=== PATIENT | female | born 1945 | race Caucasian/White ===

== ENCOUNTER 2018-12-20 07:46 | Observation (INO) | payer MEDICARE, OTHER ==
[~2018-12-20 07:46] MED LIST: Povidone-Iodine 10% Soln 118.25 ML Bottle ONE; Tranexamic Acid 950 MG in Sodium Chloride 0.9% 50 ML IV PRN
[2018-12-20] MEDS ORDERED: fentaNYL 100 MCG/2 ML SDV ONE (08:04)
[2018-12-20] MEDS ORDERED: Propofol 200 MG/20 ML SDV ONE ×3 (08:04→13:26)
[2018-12-20] MEDS ORDERED: Midazolam 1 MG/ML 2 ML SDV ONE (08:04)
[2018-12-20] MEDS ORDERED: Scopolamine 1.5 MG Transdermal Patch TOP SCH (08:15)
[2018-12-20] MEDS: Nozin Nasal Sanitizer NASBOTH SCH ×3 (08:31→22:44)
[2018-12-20] MEDS: Lactated Ringers 1,000 ML IV SCH ×2 (08:32→18:16)
[2018-12-20] MEDS ORDERED: Tranexamic Acid 950 MG in Sodium Chloride 0.9% 50 ML IV ONE ×2 (09:30→13:00)
[2018-12-20] MEDS ORDERED: ceFAZolin 2 GM in Sodium Chloride 0.9% 50 ML IV ONE (09:30)
[2018-12-20] MEDS ORDERED: Lactated Ringers 1,000 ML ONE (13:24)
[2018-12-20] MEDS ORDERED: Acetaminophen 325 MG Tab PO PRN (14:31)
[2018-12-20] MEDS ORDERED: Acetaminophen/HYDROcodone 325-5 MG Tab PO PRN (14:31)
[2018-12-20] MEDS ORDERED: Magnesium Hydroxide 400 MG/5 ML Susp 30 ML Cup PO PRN (14:48)
[2018-12-20] MEDS: HYDROmorphone 1 MG/ML Syringe IVPUSH PRN ×2 (16:06→18:14)
[2018-12-20] MEDS ORDERED: HYDROmorphone 0.5 MG/0.5 ML Syringe IVPUSH ONE (16:58)
--- NOTE | 2018-12-20 19:03 | CRLUS ---
INDICATION: Left groin pain. Status post left total knee prosthesis placement. COMPARISON: 11/08/2009 FINDINGS: Ultrasound of the arterial supply of the left lower extremity is performed with color and pulse Doppler technique. Left leg: There is monophasic flow throughout the entire left lower extremity, unchanged from the previous study. Common femoral artery: 243 centimeters/seconds Profunda femoris: 156 centimeters/seconds Proximal superficial femoral artery: 139 centimeters/seconds Mid superficial femoral artery: 117 centimeters/second Distal superficial femoral artery: 51 centimeters/second. Popliteal artery: Could not be examined because of bandage and brace from recent knee surgery. Very low flow velocities distal to the popliteal artery, with lower velocities than seen on the previous study Anterior tibial artery: 15 centimeters/second Peroneal artery: 13 centimeters/second Posterior tibial artery: 25 centimeters/seconds Dorsalis pedis: 13 centimeters/second. The findings indicate occlusion above or below the popliteal artery. The velocities are lower in the calf than seen in the previous study indicating worsening stenosis. There was previously no flow in the left mid superficial femoral artery, and flow satisfactory is now seen in this region. The flow in the common femoral artery is significantly elevated, new compared to the previous study, indicating 50-75 percent stenosis. 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 Mormonism of flow in the left mid superficial femoral artery, previously seen to be occluded. Unable to examine the popliteal artery because of bandage and brace from recent surgery. Prominently decreased peak systolic velocities throughout the left calf, more prominent than seen on the previous study, consistent with more prominent stenosis or occlusion in the area of the popliteal artery. Dictated by Surinder Cobb MD @ Dec 20 2018 6:52PM Signed by Dr. Surinder Cobb @ Dec 20 2018 7:01PM
[2018-12-20] MEDS: Acetaminophen/oxyCODONE 325-5 MG Tab PO PRN (19:25)
[2018-12-20] MEDS ORDERED: Enoxaparin 40 MG/0.4 ML Syringe SUBCUT ONE (20:00)
[2018-12-20] MEDS: Ketorolac 30 MG/ML SDV IVPUSH PRN (20:01)
[2018-12-20] MEDS: ceFAZolin 1 GM in Premix Bag 1 BAG IV SCH (20:04)
[2018-12-20] MEDS: Ondansetron 4 MG/2 ML SDV IVPUSH PRN (20:15)
[2018-12-21] MEDS: Acetaminophen/oxyCODONE 325-5 MG Tab PO PRN ×5 (04:07→20:35)
[2018-12-21] MEDS: ceFAZolin 1 GM in Premix Bag 1 BAG IV SCH ×2 (04:09→12:30)
[2018-12-21] MEDS: Ketorolac 30 MG/ML SDV IVPUSH PRN ×2 (07:37→14:29)
[2018-12-21] MEDS: Lactated Ringers 1,000 ML IV SCH (07:52)
[2018-12-21] MEDS ORDERED: Enoxaparin 40 MG/0.4 ML Syringe SUBCUT ONE (09:00)
[2018-12-21] MEDS ORDERED: Lisinopril 20 MG Tab PO SCH (09:00)
[2018-12-21] MEDS: Nozin Nasal Sanitizer NASBOTH SCH ×2 (10:07→20:33)
[2018-12-21] MEDS: amLODIPine 5 MG **PTOM PO SCH (10:08)
[2018-12-21] MEDS: LISINOPRIL 40MG **PTOM PO SCH (10:08)
[2018-12-21] MEDS: Docusate Sodium 100 MG Cap PO PRN ×2 (12:30→20:35)
[2018-12-21] MEDS: Warfarin 5 MG Tab PO SCH (12:34)
[2018-12-22] MEDS: Acetaminophen/oxyCODONE 325-5 MG Tab PO PRN ×5 (02:33→21:36)
[2018-12-22] MEDS: Ondansetron 4 MG/2 ML SDV IVPUSH PRN (09:05)
[2018-12-22] MEDS ORDERED: Enoxaparin 40 MG/0.4 ML Syringe SUBCUT ONE (10:00)
[2018-12-22] MEDS: Nozin Nasal Sanitizer NASBOTH SCH ×2 (10:04→21:37)
[2018-12-22] MEDS: amLODIPine 5 MG **PTOM PO SCH (10:05)
[2018-12-22] MEDS: LISINOPRIL 40MG **PTOM PO SCH (10:06)
[2018-12-22] MEDS ORDERED: Warfarin 2.5 MG Tab PO ONE (11:00)
--- NOTE | 2018-12-22 11:45 | PCM.SURGPN ---
- General Info Date of Service: 12/21/18 POD#: 1 Functional Status: Reports: Tolerating Diet, Other (pain not well controlled, primarily posterior knee and calf) - Review of Systems General: Reports: No Symptoms HEENT: Reports: No Symptoms Pulmonary: Reports: No Symptoms Cardiovascular: Reports: No Symptoms Gastrointestinal: Reports: No Symptoms Genitourinary: Reports: No Symptoms Musculoskeletal: Reports: Leg Pain Skin: Reports: No Symptoms Neurological: Reports: No Symptoms Psychiatric: Reports: No Symptoms - Patient Data Vitals - Most Recent: Last Vital Signs Temp 36.3 C 12/22/18 10:19 Pulse 73 12/22/18 10:19 Resp 16 12/22/18 10:19 BP 120/49 L 12/22/18 10:19 Pulse Ox 92 L 12/22/18 10:19 Weight - Most Recent: 97.522 kg I&O - Last 24 Hours: Intake & Output 12/21/18 12/22/18 12/22/18 22:59 06:59 14:59 Intake Total 1320 300 360 Output Total 700 750 200 Balance 620 -450 160 Lab Results Last 24 Hrs: Laboratory Results - last 24 hr 12/22/18 Range/Units 04:25 PT 10.8 (9.5-12.0) sec INR 1.00 (0.80-1.20) Med Orders - Current: Current Medications Acetaminophen (Tylenol) 650 mg PO Q4H PRN PRN Reason: Pain/Fever Hydrocodone Bitart/Acetaminophen ([place] 325-5 Mg) 1 tab PO Q3H PRN PRN Reason: Pain (mild 1-3) Amlodipine Besylate (Norvasc) 5 mg PO DAILY [facility] Last Admin: 12/22/18 10:05 Dose: 5 mg Bandage/Support Products ( Nasal Rn Physician Office) 1 applic NASBOTH BID [facility] Stop: 12/27/18 21:01 Last Admin: 12/22/18 10:04 Dose: 1 applic Docusate Sodium (Colace) 100 mg PO BID PRN PRN Reason: Constipation Last Admin: 12/21/18 20:35 Dose: 100 mg Hydromorphone HCl (Dilaudid) 1 mg IVPUSH Q1H PRN PRN Reason: Pain (severe 7-10) Last Admin: 12/20/18 18:14 Dose: 1 mg Ketorolac Tromethamine (Toradol) 30 mg IVPUSH Q6H PRN PRN Reason: Pain (moderate 4-6) Stop: 12/25/18 18:43 Last Admin: 12/21/18 14:29 Dose: 30 mg Magnesium Hydroxide (Milk Of Magnesia) 30 ml PO Q8H PRN PRN Reason: Constipation Ondansetron HCl (Zofran) 4 mg IVPUSH Q6H PRN PRN Reason: Nausea/Vomiting Last Admin: 12/22/18 09:05 Dose: 4 mg Oxycodone/Acetaminophen (Percocet 325-5 Mg) 1 - 2 tab PO Q4H PRN PRN Reason: Pain (severe 7-10) Last Admin: 12/22/18 11:12 Dose: 2 tab Lisinopril 40mg (Ptom) 0 each PO DAILY [facility] Last Admin: 12/22/18 10:06 Dose: 1 each Scopolamine (Transderm-Scop) 1.5 mg TOP Q72H [facility] Stop: 12/23/18 06:00 Last Admin: 12/20/18 08:29 Dose: 1.5 mg Warfarin Sodium (Coumadin) 5 mg PO DAILY@1300 [facility] Last Admin: 12/21/18 12:34 Dose: 5 mg Discontinued Medications Bandage/Support Products ( Nasal Rn Physician Office) 1 applic NASBOTH BID [facility] Last Admin: 12/20/18 22:44 Dose: Not Given Enoxaparin Sodium (Lovenox) 40 mg SUBCUT ONETIME ONE Stop: 12/20/18 20:01 Last Admin: 12/20/18 20:10 Dose: 40 mg Enoxaparin Sodium (Lovenox) 40 mg SUBCUT ONETIME ONE Stop: 12/21/18 09:01 Last Admin: 12/21/18 10:07 Dose: 40 mg Enoxaparin Sodium (Lovenox) 40 mg SUBCUT ONETIME ONE Stop: 12/22/18 10:01 Last Admin: 12/22/18 11:10 Dose: 40 mg Fentanyl (Sublimaze) Confirm Administered Dose 100 mcg .ROUTE .STK-MED ONE Stop: 12/20/18 08:05 Hydromorphone HCl (Dilaudid) 0.5 mg IVPUSH ONETIME ONE Stop: 12/20/18 16:59 Last Admin: 12/20/18 17:05 Dose: 0.5 mg Cefazolin Sodium 2 gm/ Sodium (Chloride) 50 mls @ 100 mls/hr IV ONETIME ONE Stop: 12/20/18 09:59 Last Admin: 12/20/18 12:45 Dose: 100 mls/hr Lactated Ringer's (Ringers, Lactated) 1,000 mls @ 75 mls/hr IV ASDIRECTED [facility] Last Admin: 12/21/18 07:52 Dose: 75 mls/hr Tranexamic Acid 950 mg/ Sodium (Chloride) 59.5 mls @ 238 mls/hr IV ONETIME PRN PRN Reason: REPEAT DOSE SURGEON REQUEST Stop: 12/20/18 15:00 Tranexamic Acid 950 mg/ Sodium (Chloride) 59.5 mls @ 238 mls/hr IV ONETIME ONE Stop: 12/20/18 13:14 Last Admin: 12/20/18 13:20 Dose: 238 mls/hr Lactated Ringer's (Ringers, Lactated) Confirm Administered Dose 1,000 mls @ as directed .ROUTE .STK-MED ONE Stop: 12/20/18 13:25 Cefazolin Sodium/Dextrose 1 gm (/ Premix) 50 mls @ 100 mls/hr IV Q8H [facility] Stop: 12/21/18 12:29 Last Admin: 12/21/18 12:30 Dose: 100 mls/hr Lisinopril (Prinivil) 40 mg PO DAILY [facility] Midazolam HCl (Versed 1 Mg/Ml) Confirm Administered Dose 2 mg .ROUTE .STK-MED ONE Stop: 12/20/18 08:05 Povidone Iodine (Betadine 10% Soln) Confirm Administered Dose 1 ml .ROUTE .STK- MED ONE Stop: 12/20/18 06:53 Last Admin: 12/20/18 13:40 Dose: 1 ml Propofol (Diprivan 20 Ml) Confirm Administered Dose 200 mg .ROUTE .STK-MED ONE Stop: 12/20/18 08:05 Propofol (Diprivan 20 Ml) Confirm Administered Dose 200 mg .ROUTE .STK-MED ONE Stop: 12/20/18 13:26 Propofol (Diprivan 20 Ml) Confirm Administered Dose 200 mg .ROUTE .STK-MED ONE Stop: 12/20/18 13:27 Warfarin Sodium (Coumadin) 2.5 mg PO ONETIME ONE Stop: 12/22/18 11:01 - Exam Wound/Incisions: Other (bloody drainage later in the day) General: Alert, Oriented HEENT: Pupils Equal Neck: Supple Lungs: Clear to Auscultation, Normal Respiratory Effort GI/Abdominal Exam: Normal Bowel Sounds, Soft, Non-Tender, No Organomegaly, No Distention, No Abnormal Bruit, No Mass, Pelvis Stable Extremities: Joint Swelling, Other (calf, foot and toes warm with good cap refill, Franklin's negative, moving foot up and down) Skin: Warm, Dry, Intact Neurological: No New Focal Deficit Psy/Mental Status: Alert, Normal Affect, Normal Mood - Problem List & Annotations (1) Left knee pain SNOMED Code(s): 75619146 Code(s): M25.562 - PAIN IN LEFT KNEE Status: Acute Current Visit: Yes (2) Status post total left knee replacement SNOMED Code(s): 3007628578922, 7515397187797 Code(s): Z96.652 - PRESENCE OF LEFT ARTIFICIAL KNEE JOINT Status: Acute Current Visit: Yes (3) Hx of deep venous thrombosis SNOMED Code(s): 641375732 Code(s): Z86.718 - PERSONAL HISTORY OF OTHER VENOUS THROMBOSIS AND EMBOLISM Status: Chronic Current Visit: No (4) PVD (peripheral vascular disease) SNOMED Code(s): 740709980 Code(s): I73.9 - PERIPHERAL VASCULAR DISEASE, UNSPECIFIED Status: Chronic Current Visit: No - Problem List Review Problem List Initiated/Reviewed/Updated: Yes - My Orders Last 24 Hours: Active Orders 24 hr Category Date Time Status INR,PT,PROTHROMBIN TIME [COAG] AM Lab 12/23/18 05:11 Ordered Warfarin [Coumadin] Med 12/21/18 13:00 Active 5 mg PO DAILY@1300 Convert IV to Saline Lock [OM.PC] Routine Oth 12/21/18 17:21 Ordered Medication Orders Acetaminophen (Tylenol) 650 mg PO Q4H PRN PRN Reason: Pain/Fever Hydrocodone Bitart/Acetaminophen ([place] 325-5 Mg) 1 tab PO Q3H PRN PRN Reason: Pain (mild 1-3) Amlodipine Besylate (Norvasc) 5 mg PO DAILY [facility] Last Admin: 12/22/18 10:05 Dose: 5 mg Admin: 12/21/18 10:08 Dose: 5 mg Bandage/Support Products ( Nasal Rn Physician Office) 1 applic NASBOTH BID [facility] Stop: 12/27/18 21:01 Last Admin: 12/22/18 10:04 Dose: 1 applic Admin: 12/21/18 20:33 Dose: 1 applic Admin: 12/21/18 10:07 Dose: 1 applic Admin: 12/20/18 21:47 Dose: 1 applic Docusate Sodium (Colace) 100 mg PO BID PRN PRN Reason: Constipation Last Admin: 12/21/18 20:35 Dose: 100 mg Admin: 12/21/18 12:30 Dose: 100 mg Hydromorphone HCl (Dilaudid) 1 mg IVPUSH Q1H PRN PRN Reason: Pain (severe 7-10) Last Admin: 12/20/18 18:14 Dose: 1 mg Admin: 12/20/18 16:06 Dose: 1 mg Ketorolac Tromethamine (Toradol) 30 mg IVPUSH Q6H PRN PRN Reason: Pain (moderate 4-6) Stop: 12/25/18 18:43 Last Admin: 12/21/18 14:29 Dose: 30 mg Admin: 12/21/18 07:37 Dose: 30 mg Admin: 12/20/18 20:01 Dose: 30 mg Magnesium Hydroxide (Milk Of Magnesia) 30 ml PO Q8H PRN PRN Reason: Constipation Ondansetron HCl (Zofran) 4 mg IVPUSH Q6H PRN PRN Reason: Nausea/Vomiting Last Admin: 12/22/18 09:05 Dose: 4 mg Admin: 12/20/18 20:15 Dose: 4 mg Oxycodone/Acetaminophen (Percocet 325-5 Mg) 1 - 2 tab PO Q4H PRN PRN Reason: Pain (severe 7-10) Last Admin: 12/22/18 11:12 Dose: 2 tab Admin: 12/22/18 07:02 Dose: 2 tab Admin: 12/22/18 02:33 Dose: 2 tab Admin: 12/21/18 20:35 Dose: 2 tab Admin: 12/21/18 16:22 Dose: 2 tab Admin: 12/21/18 12:30 Dose: 2 tab Admin: 12/21/18 07:53 Dose: 2 tab Admin: 12/21/18 04:07 Dose: 2 tab Admin: 12/20/18 19:25 Dose: 2 tab Lisinopril 40mg (Ptom) 0 each PO DAILY [facility] Last Admin: 12/22/18 10:06 Dose: 1 each Admin: 12/21/18 10:08 Dose: 1 each Scopolamine (Transderm-Scop) 1.5 mg TOP Q72H [facility] Stop: 12/23/18 06:00 Last Admin: 12/20/18 08:29 Dose: 1.5 mg Warfarin Sodium (Coumadin) 5 mg PO DAILY@1300 [facility] Last Admin: 12/21/18 12:34 Dose: 5 mg - Assessment Assessment (Free Text/Narrative):: Pain post-op in lower abdomen and groin, arterial Doppler done. Flow thru femoral artery, decreased flow in lower leg but present. Calf and foot are warm this AM. Has not been up with PT other than into chair. - Plan Plan (Free Text/Narrative):: Start Coumadin and continue Lovenox until PT/INR are therapeutic. Advance with PT. Change dressing, keep Guillermo thru tonight.
[2018-12-22] MEDS: Warfarin 5 MG Tab PO SCH (13:05)
--- NOTE | 2018-12-22 13:11 | OR ---
DATE OF PROCEDURE: 12/20/2018 PREOPERATIVE DIAGNOSIS: Osteoarthritis, left knee. POSTOPERATIVE DIAGNOSIS: End-stage osteoarthritis, left knee. PROCEDURE: Left total knee arthroplasty using [employer] components with a size 7 femur, size E tibia, 35 mm patella, and a 10 mm polyethylene insert. ANESTHESIA: Spinal with sedation. INDICATIONS: Daisy is a 73-year-old female with a history of progressive pain in both knees over the past year. The left knee is more painful than the right and limiting activities. X-rays show end-stage osteoarthritis. She is admitted for left total knee arthroplasty. Risks, benefits, potential complications of the procedure were discussed. PROCEDURE: After adequate anesthesia was obtained, the patient was placed supine with a tourniquet about the left upper thigh. The left leg was prepped and draped in a sterile fashion. Leg was exsanguinated and tourniquet inflated to 300 mmHg pressure. Anterior longitudinal incision was made over the knee and carried down through the subcutaneous tissues. A medial parapatellar arthrotomy was performed. A portion of the fat pad was excised. Medial release was performed and the anterior horn of the medial meniscus was excised. Patella was everted and the posterior aspect of the patella was resected with an oscillating saw. The knee was flexed, and the intramedullary canal on the femur was drilled. The intramedullary guide was placed and the distal femur was cut. Attention was then turned to the tibia where the extramedullary tibial jig was placed and secured with 2 proximal pins. Proximal tibia was resected. Medial and lateral menisci were excised. The knee was then flexed, and the distal femur was sized to a 7 component. The number 7 cutting jig was secured to the distal femur and remaining cuts were then made. The 7 trial was placed and an intercondylar notch cut was made for a posterior cruciate sacrificing component. Tibia was then sized to an E component. The tibial tray is placed and secured with a pin. Tibial preparation completed with the drill and punch. The knee was then taken through range of motion with trials with a 10 mm insert. This provided good balance in flexion and extension. The patella was resurfaced with a 35 mm patellar button and no lateral release was required. The trials were then removed. The knee is thoroughly irrigated with pulse lavage. The bone surfaces were dried and components were cemented in place. Excess cement was removed and the knee was held in full extension with a 10 mm trial insert until the cement cured. Trial was removed, the knee was irrigated, and the final 10 mm polyethylene was snapped into position. This provided excellent balance in flexion and extension with flexion easily to 130 degrees and full extension. Knee was irrigated with dilute Betadine solution followed by pulse lavage. The capsule was then closed with #1 Ethibond. The knee was then closed with 2-0 Vicryl and a running 3-0 Monocryl. Steri-Strips were applied. This was followed by a light compressive dressing. The patient tolerated the procedure very well. There were no complications. She was taken from the operating room in a stable condition. Ildefonso Justice MD /[id number]
[2018-12-22] MEDS: Docusate Sodium 100 MG Cap PO PRN (21:40)
[2018-12-23] MEDS: Acetaminophen/oxyCODONE 325-5 MG Tab PO PRN ×6 (01:56→23:32)
[2018-12-23] MEDS ORDERED: Sennosides 8.6 MG Tab PO PRN (07:52)
[2018-12-23] MEDS: Nozin Nasal Sanitizer NASBOTH SCH ×2 (08:25→22:05)
[2018-12-23] MEDS: LISINOPRIL 40MG **PTOM PO SCH (08:26)
[2018-12-23] MEDS: amLODIPine 5 MG **PTOM PO SCH (08:27)
--- NOTE | 2018-12-23 12:38 | PCM.SURGPN ---
- General Info Date of Service: 12/22/18 Date of Surgery/Procedure: 12/20/18 POD#: 2 Functional Status: Reports: Tolerating Diet, Other (Pain better controlled, has not been out of room with PT) - Review of Systems General: Reports: No Symptoms HEENT: Reports: No Symptoms Pulmonary: Reports: No Symptoms Cardiovascular: Reports: No Symptoms Gastrointestinal: Reports: Nausea Genitourinary: Reports: No Symptoms, Other Musculoskeletal: Reports: Leg Pain, Other (pain in knee and calf ) Skin: Reports: No Symptoms Neurological: Reports: No Symptoms Psychiatric: Reports: No Symptoms - Patient Data Vitals - Most Recent: Last Vital Signs Temp 36.6 C 12/23/18 10:20 Pulse 80 12/23/18 10:20 Resp 18 12/23/18 10:20 BP 105/54 L 12/23/18 10:20 Pulse Ox 94 L 12/23/18 10:20 Weight - Most Recent: 97.522 kg I&O - Last 24 Hours: Intake & Output 12/22/18 12/23/18 12/23/18 22:59 06:59 14:59 Intake Total 800 480 Output Total 100 1050 Balance 700 -1050 480 Lab Results Last 24 Hrs: Laboratory Results - last 24 hr 12/23/18 Range/Units 05:14 PT 11.2 (9.5-12.0) sec INR 1.04 (0.80-1.20) Med Orders - Current: Current Medications Acetaminophen (Tylenol) 650 mg PO Q4H PRN PRN Reason: Pain/Fever Hydrocodone Bitart/Acetaminophen (Brave 325-5 Mg) 1 tab PO Q3H PRN PRN Reason: Pain (mild 1-3) Amlodipine Besylate (Norvasc) 5 mg PO DAILY [facility] Last Admin: 12/23/18 08:27 Dose: 5 mg Bandage/Support Products ( Nasal Gun Perforator Loader) 1 applic NASBOTH BID [facility] Stop: 12/27/18 21:01 Last Admin: 12/23/18 08:25 Dose: 1 applic Docusate Sodium (Colace) 100 mg PO BID PRN PRN Reason: Constipation Last Admin: 12/22/18 21:40 Dose: 100 mg Enoxaparin Sodium (Lovenox) 40 mg SUBCUT ONETIME ONE Stop: 12/23/18 12:33 Hydromorphone HCl (Dilaudid) 1 mg IVPUSH Q1H PRN PRN Reason: Pain (severe 7-10) Last Admin: 12/20/18 18:14 Dose: 1 mg Ketorolac Tromethamine (Toradol) 30 mg IVPUSH Q6H PRN PRN Reason: Pain (moderate 4-6) Stop: 12/25/18 18:43 Last Admin: 12/21/18 14:29 Dose: 30 mg Magnesium Hydroxide (Milk Of Magnesia) 30 ml PO Q8H PRN PRN Reason: Constipation Ondansetron HCl (Zofran) 4 mg IVPUSH Q6H PRN PRN Reason: Nausea/Vomiting Last Admin: 12/22/18 09:05 Dose: 4 mg Oxycodone/Acetaminophen (Percocet 325-5 Mg) 1 - 2 tab PO Q4H PRN PRN Reason: Pain (severe 7-10) Last Admin: 12/23/18 10:17 Dose: 2 tab Lisinopril 40mg (Ptom) 0 each PO DAILY [facility] Last Admin: 12/23/18 08:26 Dose: 1 each Senna (Senna) 8.6 mg PO DAILY PRN PRN Reason: Constipation Last Admin: 12/23/18 08:25 Dose: 8.6 mg Warfarin Sodium (Coumadin) 5 mg PO DAILY@1300 [facility] Last Admin: 12/22/18 13:05 Dose: 5 mg Warfarin Sodium (Coumadin) 5 mg PO ONETIME ONE Stop: 12/23/18 12:31 Discontinued Medications Bandage/Support Products ( Nasal Gun Perforator Loader) 1 applic NASBOTH BID [facility] Last Admin: 12/20/18 22:44 Dose: Not Given Enoxaparin Sodium (Lovenox) 40 mg SUBCUT ONETIME ONE Stop: 12/20/18 20:01 Last Admin: 12/20/18 20:10 Dose: 40 mg Enoxaparin Sodium (Lovenox) 40 mg SUBCUT ONETIME ONE Stop: 12/21/18 09:01 Last Admin: 12/21/18 10:07 Dose: 40 mg Enoxaparin Sodium (Lovenox) 40 mg SUBCUT ONETIME ONE Stop: 12/22/18 10:01 Last Admin: 12/22/18 11:10 Dose: 40 mg Fentanyl (Sublimaze) Confirm Administered Dose 100 mcg .ROUTE .STK-MED ONE Stop: 12/20/18 08:05 Hydromorphone HCl (Dilaudid) 0.5 mg IVPUSH ONETIME ONE Stop: 12/20/18 16:59 Last Admin: 12/20/18 17:05 Dose: 0.5 mg Cefazolin Sodium 2 gm/ Sodium (Chloride) 50 mls @ 100 mls/hr IV ONETIME ONE Stop: 12/20/18 09:59 Last Admin: 12/20/18 12:45 Dose: 100 mls/hr Lactated Ringer's (Ringers, Lactated) 1,000 mls @ 75 mls/hr IV ASDIRECTED [facility] Last Admin: 12/21/18 07:52 Dose: 75 mls/hr Tranexamic Acid 950 mg/ Sodium (Chloride) 59.5 mls @ 238 mls/hr IV ONETIME PRN PRN Reason: REPEAT DOSE SURGEON REQUEST Stop: 12/20/18 15:00 Tranexamic Acid 950 mg/ Sodium (Chloride) 59.5 mls @ 238 mls/hr IV ONETIME ONE Stop: 12/20/18 13:14 Last Admin: 12/20/18 13:20 Dose: 238 mls/hr Lactated Ringer's (Ringers, Lactated) Confirm Administered Dose 1,000 mls @ as directed .ROUTE .STK-MED ONE Stop: 12/20/18 13:25 Cefazolin Sodium/Dextrose 1 gm (/ Premix) 50 mls @ 100 mls/hr IV Q8H [facility] Stop: 12/21/18 12:29 Last Admin: 12/21/18 12:30 Dose: 100 mls/hr Lisinopril (Prinivil) 40 mg PO DAILY [facility] Midazolam HCl (Versed 1 Mg/Ml) Confirm Administered Dose 2 mg .ROUTE .STK-MED ONE Stop: 12/20/18 08:05 Povidone Iodine (Betadine 10% Soln) Confirm Administered Dose 1 ml .ROUTE .STK- MED ONE Stop: 12/20/18 06:53 Last Admin: 12/20/18 13:40 Dose: 1 ml Propofol (Diprivan 20 Ml) Confirm Administered Dose 200 mg .ROUTE .STK-MED ONE Stop: 12/20/18 08:05 Propofol (Diprivan 20 Ml) Confirm Administered Dose 200 mg .ROUTE .STK-MED ONE Stop: 12/20/18 13:26 Propofol (Diprivan 20 Ml) Confirm Administered Dose 200 mg .ROUTE .STK-MED ONE Stop: 12/20/18 13:27 Scopolamine (Transderm-Scop) 1.5 mg TOP Q72H [facility] Stop: 12/23/18 06:00 Last Admin: 12/20/18 08:29 Dose: 1.5 mg Warfarin Sodium (Coumadin) 2.5 mg PO ONETIME ONE Stop: 12/22/18 11:01 Last Admin: 12/22/18 13:05 Dose: 2.5 mg - Exam Wound/Incisions: Other (no new drainage or bleeding) General: Alert, Oriented HEENT: Pupils Equal Neck: Supple Lungs: Clear to Auscultation, Normal Respiratory Effort Cardiovascular: Regular Rate, Regular Rhythm GI/Abdominal Exam: Normal Bowel Sounds, Soft, Non-Tender, No Organomegaly, No Distention, No Abnormal Bruit, No Mass, Pelvis Stable Extremities: Other (Franklin's negative, mild to moderate swelling, calf is warm, foot a little cooler but same as right) Neurological: No New Focal Deficit Psy/Mental Status: Alert, Normal Affect, Normal Mood - Problem List & Annotations (1) Left knee pain SNOMED Code(s): 82025260 Code(s): M25.562 - PAIN IN LEFT KNEE Status: Acute Current Visit: Yes (2) Status post total left knee replacement SNOMED Code(s): 8354838186875, 9590044049350 Code(s): Z96.652 - PRESENCE OF LEFT ARTIFICIAL KNEE JOINT Status: Acute Current Visit: Yes (3) Hx of deep venous thrombosis SNOMED Code(s): 589647809 Code(s): Z86.718 - PERSONAL HISTORY OF OTHER VENOUS THROMBOSIS AND EMBOLISM Status: Chronic Current Visit: No (4) PVD (peripheral vascular disease) SNOMED Code(s): 990866194 Code(s): I73.9 - PERIPHERAL VASCULAR DISEASE, UNSPECIFIED Status: Chronic Current Visit: No - Problem List Review Problem List Initiated/Reviewed/Updated: Yes - My Orders Last 24 Hours: Active Orders 24 hr Category Date Time Status INR,PT,PROTHROMBIN TIME [COAG] AM Lab 12/24/18 05:11 Ordered Enoxaparin [Lovenox] Med 12/23/18 12:32 Once 40 mg SUBCUT ONETIME ONE Sennosides [Senna] Med 12/23/18 07:52 Active 8.6 mg PO DAILY PRN Warfarin [Coumadin] Med 12/23/18 12:30 Once 5 mg PO ONETIME ONE Medication Orders Acetaminophen (Tylenol) 650 mg PO Q4H PRN PRN Reason: Pain/Fever Hydrocodone Bitart/Acetaminophen (Brave 325-5 Mg) 1 tab PO Q3H PRN PRN Reason: Pain (mild 1-3) Amlodipine Besylate (Norvasc) 5 mg PO DAILY [facility] Last Admin: 12/23/18 08:27 Dose: 5 mg Admin: 12/22/18 10:05 Dose: 5 mg Admin: 12/21/18 10:08 Dose: 5 mg Bandage/Support Products ( Nasal Gun Perforator Loader) 1 applic NASBOTH BID [facility] Stop: 12/27/18 21:01 Last Admin: 12/23/18 08:25 Dose: 1 applic Admin: 12/22/18 21:37 Dose: 1 applic Admin: 12/22/18 10:04 Dose: 1 applic Admin: 12/21/18 20:33 Dose: 1 applic Admin: 12/21/18 10:07 Dose: 1 applic Admin: 12/20/18 21:47 Dose: 1 applic Docusate Sodium (Colace) 100 mg PO BID PRN PRN Reason: Constipation Last Admin: 12/22/18 21:40 Dose: 100 mg Admin: 12/21/18 20:35 Dose: 100 mg Admin: 12/21/18 12:30 Dose: 100 mg Enoxaparin Sodium (Lovenox) 40 mg SUBCUT ONETIME ONE Stop: 12/23/18 12:33 Hydromorphone HCl (Dilaudid) 1 mg IVPUSH Q1H PRN PRN Reason: Pain (severe 7-10) Last Admin: 12/20/18 18:14 Dose: 1 mg Admin: 12/20/18 16:06 Dose: 1 mg Ketorolac Tromethamine (Toradol) 30 mg IVPUSH Q6H PRN PRN Reason: Pain (moderate 4-6) Stop: 12/25/18 18:43 Last Admin: 12/21/18 14:29 Dose: 30 mg Admin: 12/21/18 07:37 Dose: 30 mg Admin: 12/20/18 20:01 Dose: 30 mg Magnesium Hydroxide (Milk Of Magnesia) 30 ml PO Q8H PRN PRN Reason: Constipation Ondansetron HCl (Zofran) 4 mg IVPUSH Q6H PRN PRN Reason: Nausea/Vomiting Last Admin: 12/22/18 09:05 Dose: 4 mg Admin: 12/20/18 20:15 Dose: 4 mg Oxycodone/Acetaminophen (Percocet 325-5 Mg) 1 - 2 tab PO Q4H PRN PRN Reason: Pain (severe 7-10) Last Admin: 12/23/18 10:17 Dose: 2 tab Admin: 12/23/18 06:20 Dose: 2 tab Admin: 12/23/18 01:56 Dose: 2 tab Admin: 12/22/18 21:36 Dose: 2 tab Admin: 12/22/18 17:27 Dose: 2 tab Admin: 12/22/18 11:12 Dose: 2 tab Admin: 12/22/18 07:02 Dose: 2 tab Admin: 12/22/18 02:33 Dose: 2 tab Admin: 12/21/18 20:35 Dose: 2 tab Admin: 12/21/18 16:22 Dose: 2 tab Admin: 12/21/18 12:30 Dose: 2 tab Admin: 12/21/18 07:53 Dose: 2 tab Admin: 12/21/18 04:07 Dose: 2 tab Admin: 12/20/18 19:25 Dose: 2 tab Lisinopril 40mg (Ptom) 0 each PO DAILY [facility] Last Admin: 12/23/18 08:26 Dose: 1 each Admin: 12/22/18 10:06 Dose: 1 each Admin: 12/21/18 10:08 Dose: 1 each Senna (Senna) 8.6 mg PO DAILY PRN PRN Reason: Constipation Last Admin: 12/23/18 08:25 Dose: 8.6 mg Warfarin Sodium (Coumadin) 5 mg PO DAILY@1300 [facility] Last Admin: 12/22/18 13:05 Dose: 5 mg Admin: 12/21/18 12:34 Dose: 5 mg Warfarin Sodium (Coumadin) 5 mg PO ONETIME ONE Stop: 12/23/18 12:31 - Assessment Assessment (Free Text/Narrative):: Better today than yesterday but limited mobility, pain better controlled, distal circulation ok - Plan Plan (Free Text/Narrative):: Continue PT/OT, additional 2.5 mg Coumadin and recheck PT/INR in am, making arrangements for Home Health to follow on discharge.
--- NOTE | 2018-12-23 12:52 | PCM.SURGPN ---
- General Info Date of Service: 12/23/18 Date of Surgery/Procedure: 12/20/18 POD#: 3 Functional Status: Reports: Pain Controlled, Tolerating Diet, Ambulating, Urinating - Review of Systems General: Reports: No Symptoms HEENT: Reports: No Symptoms Pulmonary: Reports: No Symptoms Cardiovascular: Reports: No Symptoms Gastrointestinal: Reports: No Symptoms Genitourinary: Reports: No Symptoms Musculoskeletal: Reports: Leg Pain Skin: Reports: No Symptoms Neurological: Reports: No Symptoms Psychiatric: Reports: No Symptoms - Patient Data Vitals - Most Recent: Last Vital Signs Temp 36.6 C 12/23/18 10:20 Pulse 80 12/23/18 10:20 Resp 18 12/23/18 10:20 BP 105/54 L 12/23/18 10:20 Pulse Ox 94 L 12/23/18 10:20 Weight - Most Recent: 97.522 kg I&O - Last 24 Hours: Intake & Output 12/22/18 12/23/18 12/23/18 22:59 06:59 14:59 Intake Total 800 480 Output Total 100 1050 Balance 700 -1050 480 Lab Results Last 24 Hrs: Laboratory Results - last 24 hr 12/23/18 Range/Units 05:14 PT 11.2 (9.5-12.0) sec INR 1.04 (0.80-1.20) Med Orders - Current: Current Medications Acetaminophen (Tylenol) 650 mg PO Q4H PRN PRN Reason: Pain/Fever Hydrocodone Bitart/Acetaminophen ([place] 325-5 Mg) 1 tab PO Q3H PRN PRN Reason: Pain (mild 1-3) Amlodipine Besylate (Norvasc) 5 mg PO DAILY REPLACED BY [facility] Last Admin: 12/23/18 08:27 Dose: 5 mg Bandage/Support Products ( Nasal Steam Fitter Helper) 1 applic NASBOTH BID [facility] Stop: 12/27/18 21:01 Last Admin: 12/23/18 08:25 Dose: 1 applic Docusate Sodium (Colace) 100 mg PO BID PRN PRN Reason: Constipation Last Admin: 12/22/18 21:40 Dose: 100 mg Enoxaparin Sodium (Lovenox) 40 mg SUBCUT ONETIME ONE Stop: 12/23/18 13:01 Hydromorphone HCl (Dilaudid) 1 mg IVPUSH Q1H PRN PRN Reason: Pain (severe 7-10) Last Admin: 12/20/18 18:14 Dose: 1 mg Ketorolac Tromethamine (Toradol) 30 mg IVPUSH Q6H PRN PRN Reason: Pain (moderate 4-6) Stop: 12/25/18 18:43 Last Admin: 12/21/18 14:29 Dose: 30 mg Magnesium Hydroxide (Milk Of Magnesia) 30 ml PO Q8H PRN PRN Reason: Constipation Ondansetron HCl (Zofran) 4 mg IVPUSH Q6H PRN PRN Reason: Nausea/Vomiting Last Admin: 12/22/18 09:05 Dose: 4 mg Oxycodone/Acetaminophen (Percocet 325-5 Mg) 1 - 2 tab PO Q4H PRN PRN Reason: Pain (severe 7-10) Last Admin: 12/23/18 10:17 Dose: 2 tab Lisinopril 40mg (Ptom) 0 each PO DAILY [facility]PL[facility]ED [facility] Last Admin: 12/23/18 08:26 Dose: 1 each Senna (Senna) 8.6 mg PO DAILY PRN PRN Reason: Constipation Last Admin: 12/23/18 08:25 Dose: 8.6 mg Warfarin Sodium (Coumadin) 5 mg PO DAILY@1300 REPLACED [facility] Last Admin: 12/22/18 13:05 Dose: 5 mg Warfarin Sodium (Coumadin) 5 mg PO ONETIME ONE Stop: 12/23/18 13:01 Discontinued Medications Bandage/Support Products ( Nasal Steam Fitter Helper) 1 applic NASBOTH BID REPLACED BY [facility] Last Admin: 12/20/18 22:44 Dose: Not Given Enoxaparin Sodium (Lovenox) 40 mg SUBCUT ONETIME ONE Stop: 12/20/18 20:01 Last Admin: 12/20/18 20:10 Dose: 40 mg Enoxaparin Sodium (Lovenox) 40 mg SUBCUT ONETIME ONE Stop: 12/21/18 09:01 Last Admin: 12/21/18 10:07 Dose: 40 mg Enoxaparin Sodium (Lovenox) 40 mg SUBCUT ONETIME ONE Stop: 12/22/18 10:01 Last Admin: 12/22/18 11:10 Dose: 40 mg Fentanyl (Sublimaze) Confirm Administered Dose 100 mcg .ROUTE .STK-MED ONE Stop: 12/20/18 08:05 Hydromorphone HCl (Dilaudid) 0.5 mg IVPUSH ONETIME ONE Stop: 12/20/18 16:59 Last Admin: 12/20/18 17:05 Dose: 0.5 mg Cefazolin Sodium 2 gm/ Sodium (Chloride) 50 mls @ 100 mls/hr IV ONETIME ONE Stop: 12/20/18 09:59 Last Admin: 12/20/18 12:45 Dose: 100 mls/hr Lactated Ringer's (Ringers, Lactated) 1,000 mls @ 75 mls/hr IV ASDIRECTED REPLACED BY [facility] Last Admin: 12/21/18 07:52 Dose: 75 mls/hr Tranexamic Acid 950 mg/ Sodium (Chloride) 59.5 mls @ 238 mls/hr IV ONETIME PRN PRN Reason: REPEAT DOSE SURGEON REQUEST Stop: 12/20/18 15:00 Tranexamic Acid 950 mg/ Sodium (Chloride) 59.5 mls @ 238 mls/hr IV ONETIME ONE Stop: 12/20/18 13:14 Last Admin: 12/20/18 13:20 Dose: 238 mls/hr Lactated Ringer's (Ringers, Lactated) Confirm Administered Dose 1,000 mls @ as directed .ROUTE .STK-MED ONE Stop: 12/20/18 13:25 Cefazolin Sodium/Dextrose 1 gm (/ Premix) 50 mls @ 100 mls/hr IV Q8H REPLACED BY [facility] Stop: 12/21/18 12:29 Last Admin: 12/21/18 12:30 Dose: 100 mls/hr Lisinopril (Prinivil) 40 mg PO DAILY REPLACED BY [facility] Midazolam HCl (Versed 1 Mg/Ml) Confirm Administered Dose 2 mg .ROUTE .STK-MED ONE Stop: 12/20/18 08:05 Povidone Iodine (Betadine 10% Soln) Confirm Administered Dose 1 ml .ROUTE .STK- MED ONE Stop: 12/20/18 06:53 Last Admin: 12/20/18 13:40 Dose: 1 ml Propofol (Diprivan 20 Ml) Confirm Administered Dose 200 mg .ROUTE .STK-MED ONE Stop: 12/20/18 08:05 Propofol (Diprivan 20 Ml) Confirm Administered Dose 200 mg .ROUTE .STK-MED ONE Stop: 12/20/18 13:26 Propofol (Diprivan 20 Ml) Confirm Administered Dose 200 mg .ROUTE .STK-MED ONE Stop: 12/20/18 13:27 Scopolamine (Transderm-Scop) 1.5 mg TOP Q72H [facility] Stop: 12/23/18 06:00 Last Admin: 12/20/18 08:29 Dose: 1.5 mg Warfarin Sodium (Coumadin) 2.5 mg PO ONETIME ONE Stop: 12/22/18 11:01 Last Admin: 12/22/18 13:05 Dose: 2.5 mg - Exam Wound/Incisions: Healing Well, No Drainage General: Alert, Oriented HEENT: Pupils Equal Neck: Supple Lungs: Clear to Auscultation, Normal Respiratory Effort Cardiovascular: Regular Rate, Regular Rhythm GI/Abdominal Exam: Normal Bowel Sounds, Soft, Non-Tender, No Organomegaly, No Distention, No Abnormal Bruit, No Mass, Pelvis Stable Extremities: Other (Incision looks good, no bleeding or drainage, distal circulation OK) Skin: Warm, Dry, Intact Neurological: No New Focal Deficit Psy/Mental Status: Alert, Normal Affect, Normal Mood - Problem List & Annotations (1) Left knee pain SNOMED Code(s): 34575844 Code(s): M25.562 - PAIN IN LEFT KNEE Status: Acute Current Visit: Yes (2) Status post total left knee replacement SNOMED Code(s): 0420420318876, 0270230889229 Code(s): Z96.652 - PRESENCE OF LEFT ARTIFICIAL KNEE JOINT Status: Acute Current Visit: Yes (3) Hx of deep venous thrombosis SNOMED Code(s): 416243170 Code(s): Z86.718 - PERSONAL HISTORY OF OTHER VENOUS THROMBOSIS AND EMBOLISM Status: Chronic Current Visit: No (4) PVD (peripheral vascular disease) SNOMED Code(s): 226072348 Code(s): I73.9 - PERIPHERAL VASCULAR DISEASE, UNSPECIFIED Status: Chronic Current Visit: No - Problem List Review Problem List Initiated/Reviewed/Updated: Yes - My Orders Last 24 Hours: Active Orders 24 hr Category Date Time Status INR,PT,PROTHROMBIN TIME [COAG] AM Lab 12/24/18 05:11 Ordered Enoxaparin [Lovenox] Med 12/23/18 12:32 Once 40 mg SUBCUT ONETIME ONE Sennosides [Senna] Med 12/23/18 07:52 Active 8.6 mg PO DAILY PRN Warfarin [Coumadin] Med 12/23/18 12:30 Once 5 mg PO ONETIME ONE Medication Orders Acetaminophen (Tylenol) 650 mg PO Q4H PRN PRN Reason: Pain/Fever Hydrocodone Bitart/Acetaminophen ([place] 325-5 Mg) 1 tab PO Q3H PRN PRN Reason: Pain (mild 1-3) Amlodipine Besylate (Norvasc) 5 mg PO DAILY REPLACED BY [facility] Last Admin: 12/23/18 08:27 Dose: 5 mg Admin: 12/22/18 10:05 Dose: 5 mg Admin: 12/21/18 10:08 Dose: 5 mg Bandage/Support Products ( Nasal Steam Fitter Helper) 1 applic NASBOTH BID [facility] Stop: 12/27/18 21:01 Last Admin: 12/23/18 08:25 Dose: 1 applic Admin: 12/22/18 21:37 Dose: 1 applic Admin: 12/22/18 10:04 Dose: 1 applic Admin: 12/21/18 20:33 Dose: 1 applic Admin: 12/21/18 10:07 Dose: 1 applic Admin: 12/20/18 21:47 Dose: 1 applic Docusate Sodium (Colace) 100 mg PO BID PRN PRN Reason: Constipation Last Admin: 12/22/18 21:40 Dose: 100 mg Admin: 12/21/18 20:35 Dose: 100 mg Admin: 12/21/18 12:30 Dose: 100 mg Enoxaparin Sodium (Lovenox) 40 mg SUBCUT ONETIME ONE Stop: 12/23/18 13:01 Hydromorphone HCl (Dilaudid) 1 mg IVPUSH Q1H PRN PRN Reason: Pain (severe 7-10) Last Admin: 12/20/18 18:14 Dose: 1 mg Admin: 12/20/18 16:06 Dose: 1 mg Ketorolac Tromethamine (Toradol) 30 mg IVPUSH Q6H PRN PRN Reason: Pain (moderate 4-6) Stop: 12/25/18 18:43 Last Admin: 12/21/18 14:29 Dose: 30 mg Admin: 12/21/18 07:37 Dose: 30 mg Admin: 12/20/18 20:01 Dose: 30 mg Magnesium Hydroxide (Milk Of Magnesia) 30 ml PO Q8H PRN PRN Reason: Constipation Ondansetron HCl (Zofran) 4 mg IVPUSH Q6H PRN PRN Reason: Nausea/Vomiting Last Admin: 12/22/18 09:05 Dose: 4 mg Admin: 12/20/18 20:15 Dose: 4 mg Oxycodone/Acetaminophen (Percocet 325-5 Mg) 1 - 2 tab PO Q4H PRN PRN Reason: Pain (severe 7-10) Last Admin: 12/23/18 10:17 Dose: 2 tab Admin: 12/23/18 06:20 Dose: 2 tab Admin: 12/23/18 01:56 Dose: 2 tab Admin: 12/22/18 21:36 Dose: 2 tab Admin: 12/22/18 17:27 Dose: 2 tab Admin: 12/22/18 11:12 Dose: 2 tab Admin: 12/22/18 07:02 Dose: 2 tab Admin: 12/22/18 02:33 Dose: 2 tab Admin: 12/21/18 20:35 Dose: 2 tab Admin: 12/21/18 16:22 Dose: 2 tab Admin: 12/21/18 12:30 Dose: 2 tab Admin: 12/21/18 07:53 Dose: 2 tab Admin: 12/21/18 04:07 Dose: 2 tab Admin: 12/20/18 19:25 Dose: 2 tab Lisinopril 40mg (Ptom) 0 each PO DAILY REPLACED BY [facility] Last Admin: 12/23/18 08:26 Dose: 1 each Admin: 12/22/18 10:06 Dose: 1 each Admin: 12/21/18 10:08 Dose: 1 each Senna (Senna) 8.6 mg PO DAILY PRN PRN Reason: Constipation Last Admin: 12/23/18 08:25 Dose: 8.6 mg Warfarin Sodium (Coumadin) 5 mg PO DAILY@1300 REPLACED BY [facility] Last Admin: 12/22/18 13:05 Dose: 5 mg Admin: 12/21/18 12:34 Dose: 5 mg Warfarin Sodium (Coumadin) 5 mg PO ONETIME ONE Stop: 12/23/18 13:01 - Assessment Assessment (Free Text/Narrative):: Continues to improve slowly, has only gone 30 ft with walker, PT/INR low - Plan Plan (Free Text/Narrative):: Will give additional 10 mg Coumadin today recheck PT/INR in am. Up with PT/OT today in [place], have home health referral in. If no complication today/tonight and PT/INR going up should be able to discharge tomorrow.
[2018-12-23] MEDS ORDERED: Enoxaparin 40 MG/0.4 ML Syringe SUBCUT ONE (13:00)
[2018-12-23] MEDS ORDERED: Warfarin 5 MG Tab PO ONE (13:00)
[2018-12-23] MEDS: Warfarin 5 MG Tab PO SCH (13:59)
[2018-12-23] MEDS: HYDROmorphone 1 MG/ML Syringe IVPUSH PRN (22:29)
[2018-12-24] MEDS: Acetaminophen/oxyCODONE 325-5 MG Tab PO PRN ×3 (03:45→11:28)
[2018-12-24 07:29] VITALS: PULSE 79
[2018-12-24] MEDS ORDERED: Warfarin 5 MG Tab PO ONE (10:00)
[2018-12-24] MEDS ORDERED: Enoxaparin 40 MG/0.4 ML Syringe SUBCUT ONE (10:00)
[2018-12-24] MEDS: LISINOPRIL 40MG **PTOM PO SCH (10:42)
[2018-12-24] MEDS: Nozin Nasal Sanitizer NASBOTH SCH (10:42)
[2018-12-24] MEDS: amLODIPine 5 MG **PTOM PO SCH (10:42)
[2018-12-24 10:44] VITALS: BP 111/87
[2018-12-24] MEDS ORDERED: Warfarin 5 MG Tab PO SCH (11:00)
[2018-12-24] MEDS: Docusate Sodium 100 MG Cap PO PRN (11:28)
--- NOTE | 2018-12-24 11:32 | PCM.DCSUM1 ---
Discharge Summary - Hospital Course Free Text/Narrative:: 73 year old female admitted for left TKA. Progressive knee pain secondary to primary osteoarthritis. Diagnosis: Stroke: No - Discharge Data Discharge Date: 12/24/18 Discharge Disposition: Home, W Home Health Agency 06 Condition: Good - Discharge Diagnosis/Problem(s) (1) Left knee pain SNOMED Code(s): 63148987 ICD Code: M25.562 - PAIN IN LEFT KNEE Status: Acute Current Visit: Yes (2) Status post total left knee replacement SNOMED Code(s): 4461744167623, 8442926321011 ICD Code: Z96.652 - PRESENCE OF LEFT ARTIFICIAL KNEE JOINT Status: Acute Current Visit: Yes (3) Hx of deep venous thrombosis SNOMED Code(s): 015896932 ICD Code: Z86.718 - PERSONAL HISTORY OF OTHER VENOUS THROMBOSIS AND EMBOLISM Status: Chronic Current Visit: No (4) PVD (peripheral vascular disease) SNOMED Code(s): 572629271 ICD Code: I73.9 - PERIPHERAL VASCULAR DISEASE, UNSPECIFIED Status: Chronic Current Visit: No (5) Osteoarthritis, knee SNOMED Code(s): 554512386 ICD Code: M17.10 - UNILATERAL PRIMARY OSTEOARTHRITIS, UNSPECIFIED KNEE Status: Acute Current Visit: Yes Qualifiers: Osteoarthritis type: primary Laterality: left Qualified Code(s): M17.12 - Unilateral primary osteoarthritis, left knee - Patient Summary/Data Operative Procedure(s) Performed: Left Total Knee Arthroplasty Consults: Consultations 12/20/18 14:37 PT Evaluation and Treatment [CONS] Routine Please Evaluate and Treat. PT Reason for Consult: Ambulation Discharge Disposition: Home w Home Health Special Instructions: WBAT, ROM This query below is only for informational purposes and is not editable. 12/20/18 14:45 Consult to Occupational Therapy [OT Evaluation and Treatment] [CONS] Routine Please Evaluate and Treat. OT Reason for Consult: ADL's Pending Discharge: Yes Discharge Disposition: Home w Home Health Special Instructions: ADLs and adaptive devices This query below is only for informational purposes and is not editable. Admission Diagnosis/Problem: Osteoarthritis Recommended Follow-up Testing/Procedures: Check PT/INR on Thursday (has home monitoring machine) and call with results for Coumadin dose adjustment Take Coumadin 10 mg Thu and Thursday. Hospital Course: Admitted for left TKA and underwent procedure without complication. Did have severe lower abdomen and groin pain post -op. Arterial U/S was done to confirm femoral artery stent was patent. Flow was noted in [employer] and throughout the left limb with evidence of stenosis at popliteal level. Pain resolved throughout the night with no evidence of ischemia in lower leg and foot. Was able to progress with PT/OT over next few days. Pain control was an issue for POD #1- 2. Started back on Coumadin POD #1 and had Lovenox during initiation of Coumadin dosing. Was able to gain mobility for transfers in/out of bed and to bathroom prior to D/C. Plan discharge to [facility] with Home Health agency to follow for PT. Follow up with Ortho in two weeks. - Patient Instructions Diet: Usual Diet as Tolerated Activity: Apply Ice, As Tolerated, Full Weight Bearing Driving: Do Not Drive Showering/Bathing: May Shower Notify Provider of: Fever, Increased Pain, Swelling and Redness, Drainage - Discharge Plan *PRESCRIPTION DRUG MONITORING PROGRAM REVIEWED*: No *COPY OF PRESCRIPTION DRUG MONITORING REPORT IN PATIENT DINORAH: No Prescriptions/Med Rec: oxyCODONE HCl/Acetaminophen [Percocet 5-325 mg Tablet] 1 each PO Q4HR PRN #40 tablet PRN Reason: Pain (Severe 7-10) traMADol [Ultram] 50 mg PO Q4H PRN #40 tab PRN Reason: Pain (Moderate 4-6) Home Medications: Home Meds Lisinopril 40 mg PO DAILY 09/29/14 [History] amLODIPine Besylate [Amlodipine Besylate] 5 mg PO DAILY 01/06/18 [History] traMADol HCl [Tramadol HCl] 50 mg PO Q6H PRN 03/05/18 [History] Acetaminophen [Tylenol Extra Strength] 1,000 mg PO Q6H 03/08/18 [History] Warfarin [Coumadin] 5 mg PO DAILY 03/08/18 [History] oxyCODONE HCl/Acetaminophen [Percocet 5-325 mg Tablet] 1 each PO Q4HR PRN #40 tablet 12/24/18 [Rx] traMADol [Ultram] 50 mg PO Q4H PRN #40 tab 12/24/18 [Rx] Oxygen Therapy Mode: Room Air Patient Handouts: Bleeding Precautions When on Anticoagulant Therapy, Pediatric , Warfarin Coagulopathy, Total Knee Replacement, Care After, [id number], Deep Vein Thrombosis Referrals: Ildefonso Justice MD [Physician] - 01/04/19 10:45 am (Please arrive 15 minutes early to register for your appointment. Please register at the ER desk.) - Discharge Summary/Plan Comment DC Time >30 min.: Yes - General Info Functional Status: Reports: Pain Controlled, Tolerating Diet, Ambulating, Urinating - Review of Systems General: Reports: No Symptoms HEENT: Reports: No Symptoms Pulmonary: Reports: No Symptoms Cardiovascular: Reports: No Symptoms Gastrointestinal: Reports: No Symptoms Genitourinary: Reports: No Symptoms Musculoskeletal: Reports: Leg Pain Skin: Reports: No Symptoms Neurological: Reports: No Symptoms Psychiatric: Reports: No Symptoms - Patient Data Vitals - Most Recent: Last Vital Signs Temp 37.1 C 12/24/18 07:28 Pulse 79 12/24/18 07:28 Resp 16 12/24/18 07:28 BP 111/87 12/24/18 10:42 Pulse Ox 93 L 12/24/18 07:28 Weight - Most Recent: 97.522 kg I&O - Last 24 hours: Intake & Output 12/23/18 12/24/18 12/24/18 22:59 06:59 14:59 Intake Total 240 150 240 Balance 240 150 240 Lab Results - Last 24 hrs: Laboratory Results - last 24 hr 12/24/18 Range/Units 04:47 PT 14.4 H (9.5-12.0) sec INR 1.36 H (0.80-1.20) Med Orders - Current: Current Medications Acetaminophen (Tylenol) 650 mg PO Q4H PRN PRN Reason: Pain/Fever Hydrocodone Bitart/Acetaminophen ([place] 325-5 Mg) 1 tab PO Q3H PRN PRN Reason: Pain (mild 1-3) Amlodipine Besylate (Norvasc) 5 mg PO DAILY [facility] Last Admin: 12/24/18 10:42 Dose: 5 mg Bandage/Support Products ( Nasal Strap Making Machine Operator) 1 applic NASBOTH BID [facility] Stop: 12/27/18 21:01 Last Admin: 12/24/18 10:42 Dose: 1 applic Docusate Sodium (Colace) 100 mg PO BID PRN PRN Reason: Constipation Last Admin: 12/22/18 21:40 Dose: 100 mg Hydromorphone HCl (Dilaudid) 1 mg IVPUSH Q1H PRN PRN Reason: Pain (severe 7-10) Last Admin: 12/23/18 22:29 Dose: 1 mg Ketorolac Tromethamine (Toradol) 30 mg IVPUSH Q6H PRN PRN Reason: Pain (moderate 4-6) Stop: 12/25/18 18:43 Last Admin: 12/21/18 14:29 Dose: 30 mg Magnesium Hydroxide (Milk Of Magnesia) 30 ml PO Q8H PRN PRN Reason: Constipation Ondansetron HCl (Zofran) 4 mg IVPUSH Q6H PRN PRN Reason: Nausea/Vomiting Last Admin: 12/22/18 09:05 Dose: 4 mg Oxycodone/Acetaminophen (Percocet 325-5 Mg) 1 - 2 tab PO Q4H PRN PRN Reason: Pain (severe 7-10) Last Admin: 12/24/18 07:49 Dose: 2 tab Lisinopril 40mg (Ptom) 0 each PO DAILY [facility] Last Admin: 12/24/18 10:42 Dose: 1 each Senna (Senna) 8.6 mg PO DAILY PRN PRN Reason: Constipation Last Admin: 12/23/18 08:25 Dose: 8.6 mg Warfarin Sodium (Coumadin) 5 mg PO DAILY@1300 [facility] Discontinued Medications Bandage/Support Products ( Nasal Strap Making Machine Operator) 1 applic NASBOTH BID [facility] Last Admin: 12/20/18 22:44 Dose: Not Given Enoxaparin Sodium (Lovenox) 40 mg SUBCUT ONETIME ONE Stop: 12/20/18 20:01 Last Admin: 12/20/18 20:10 Dose: 40 mg Enoxaparin Sodium (Lovenox) 40 mg SUBCUT ONETIME ONE Stop: 12/21/18 09:01 Last Admin: 12/21/18 10:07 Dose: 40 mg Enoxaparin Sodium (Lovenox) 40 mg SUBCUT ONETIME ONE Stop: 12/22/18 10:01 Last Admin: 12/22/18 11:10 Dose: 40 mg Enoxaparin Sodium (Lovenox) 40 mg SUBCUT ONETIME ONE Stop: 12/23/18 13:01 Last Admin: 12/23/18 13:59 Dose: 40 mg Enoxaparin Sodium (Lovenox) 40 mg SUBCUT ONETIME ONE Stop: 12/24/18 10:01 Last Admin: 12/24/18 10:43 Dose: 40 mg Fentanyl (Sublimaze) Confirm Administered Dose 100 mcg .ROUTE .STK-MED ONE Stop: 12/20/18 08:05 Hydromorphone HCl (Dilaudid) 0.5 mg IVPUSH ONETIME ONE Stop: 12/20/18 16:59 Last Admin: 12/20/18 17:05 Dose: 0.5 mg Cefazolin Sodium 2 gm/ Sodium (Chloride) 50 mls @ 100 mls/hr IV ONETIME ONE Stop: 12/20/18 09:59 Last Admin: 12/20/18 12:45 Dose: 100 mls/hr Lactated Ringer's (Ringers, Lactated) 1,000 mls @ 75 mls/hr IV ASDIRECTED [facility] Last Admin: 12/21/18 07:52 Dose: 75 mls/hr Tranexamic Acid 950 mg/ Sodium (Chloride) 59.5 mls @ 238 mls/hr IV ONETIME PRN PRN Reason: REPEAT DOSE SURGEON REQUEST Stop: 12/20/18 15:00 Tranexamic Acid 950 mg/ Sodium (Chloride) 59.5 mls @ 238 mls/hr IV ONETIME ONE Stop: 12/20/18 13:14 Last Admin: 12/20/18 13:20 Dose: 238 mls/hr Lactated Ringer's (Ringers, Lactated) Confirm Administered Dose 1,000 mls @ as directed .ROUTE .STK-MED ONE Stop: 12/20/18 13:25 Cefazolin Sodium/Dextrose 1 gm (/ Premix) 50 mls @ 100 mls/hr IV Q8H [facility] Stop: 12/21/18 12:29 Last Admin: 12/21/18 12:30 Dose: 100 mls/hr Lisinopril (Prinivil) 40 mg PO DAILY [facility] Midazolam HCl (Versed 1 Mg/Ml) Confirm Administered Dose 2 mg .ROUTE .STK-MED ONE Stop: 12/20/18 08:05 Povidone Iodine (Betadine 10% Soln) Confirm Administered Dose 1 ml .ROUTE .STK- MED ONE Stop: 12/20/18 06:53 Last Admin: 12/20/18 13:40 Dose: 1 ml Propofol (Diprivan 20 Ml) Confirm Administered Dose 200 mg .ROUTE .STK-MED ONE Stop: 12/20/18 08:05 Propofol (Diprivan 20 Ml) Confirm Administered Dose 200 mg .ROUTE .STK-MED ONE Stop: 12/20/18 13:26 Propofol (Diprivan 20 Ml) Confirm Administered Dose 200 mg .ROUTE .STK-MED ONE Stop: 12/20/18 13:27 Scopolamine (Transderm-Scop) 1.5 mg TOP Q72H [facility] Stop: 12/23/18 06:00 Last Admin: 12/20/18 08:29 Dose: 1.5 mg Warfarin Sodium (Coumadin) 5 mg PO DAILY@1300 [facility] Last Admin: 12/23/18 13:59 Dose: 5 mg Warfarin Sodium (Coumadin) 2.5 mg PO ONETIME ONE Stop: 12/22/18 11:01 Last Admin: 12/22/18 13:05 Dose: 2.5 mg Warfarin Sodium (Coumadin) 5 mg PO ONETIME ONE Stop: 12/23/18 13:01 Last Admin: 12/23/18 13:59 Dose: 5 mg Warfarin Sodium (Coumadin) 5 mg PO ONETIME ONE Stop: 12/24/18 10:01 - Exam Quality Assessment: Reports: DVT Prophylaxis General: Reports: Alert, Oriented, Cooperative HEENT: Reports: Pupils Equal, Pupils Reactive, EOMI, Mucous Membr. Moist/[place] Neck: Reports: Supple Lungs: Reports: Clear to Auscultation, Normal Respiratory Effort Cardiovascular: Reports: Regular Rate, Regular Rhythm GI/Abdominal Exam: Normal Bowel Sounds, Soft, Non-Tender, No Distention (Female) Exam: Deferred Rectal (Female) Exam: Deferred Back Exam: Reports: Normal Inspection, Full Range of Motion Extremities: Limited Range of Motion, Other (Mild swelling in knee and calf, ROM approx 10-85, circulation in toes and foot intact) Skin: Reports: Warm, Dry, Intact Wound/Incisions: Reports: Healing Well, Dressing Dry and Intact, No Drainage Neurological: Reports: No New Focal Deficit Psy/Mental Status: Reports: Alert, Normal Affect, Normal Mood
== END 2018-12-24 11:55 | disposition home health service (06) ==
LOC: JP.SDS 07:46 → UNDOADMOB 14:37 → JP.2SS 14:37 → JP.SDS 12-21 08:58 → JP.2SS 12-21 09:00 → UNDODISOB 12-24 11:55
PROVIDERS: ADMIT Specialist; ATTEND Specialist
DX: M17.12 Unilateral primary osteoarthritis, left knee (principal); I10 Essential (primary) hypertension; I70.202 Unspecified atherosclerosis of native arteries of extremities, left leg; F32.9 Major depressive disorder, single episode, unspecified; Z88.2 Allergy status to sulfonamides; Z95.820 Peripheral vascular angioplasty status with implants and grafts; Z86.718 Personal history of other venous thrombosis and embolism; Z79.01 Long term (current) use of anticoagulants; Z79.899 Other long term (current) drug therapy
CPT/HCPCS: 27447; 36415; 51798; 73560; 85027; 85610; 86850; 86900; 86901; 93926; 96372; 97110; 97161; 97530; 97535; 99024; A9270; C1713; C1776; G0378; J0690; J1170; J1650; J1885; J2250; J2405; J2704; J3010; J7050; J7120